=== PATIENT | male | born 1970 | race Caucasian/White ===

== ENCOUNTER 2022-11-18 22:31 | Emergency (ER) | payer OTHER ==
[2022-11-18 23:16] LABS: BASOPHILS ABSOLUTE AUTO 0.05 K/mm3 (0.01-0.08); BASOPHILS PERCENT AUTO 0.6 % (0.1-1.2); EOSINOPHILS ABSOLUTE AUTO 0.18 K/mm3 (0.04-0.54); EOSINOPHILS PERCENT AUTO 2.1 (0.8-7.0); HEMATOCRIT 46.2 % (40.1-51.0); HEMOGLOBIN 15.9 gm/dl (13.7-17.5); IMMATURE GRAN ABSOLUTE AUTO 0.01 K/mm3 (0.00-0.10); IMMATURE GRAN PERCENT AUTO 0.1 % (<=1.0); LYMPHOCYTES ABSOLUTE AUTO 3.47 K/mm3 (1.32-3.57); LYMPHOCYTES PERCENT AUTO 39.6 % (21.8-53.1); MEAN CORPUSCULAR HEMOGLOBIN 32.1 pg (25.7-32.2); MEAN CORPUSCULAR HGB CONC 34.4 g/dl (32.2-35.5); MEAN CORPUSCULAR VOLUME 93.1 fl (79.0-92.2); MEAN PLATELET VOLUME 9.6 fl (9.4-12.3); MONOCYTES ABSOLUTE AUTO 1.26 K/mm3 (0.30-0.82); MONOCYTES PERCENT AUTO 14.4 % (5.3-12.2); NEUTROPHILS PERCENT AUTO 43.2 % (34.0-67.9); PLATELET COUNT,PLT 307 K/mm3 (163-337); RED BLOOD CELL COUNT 4.96 M/mm3 (4.63-6.08); WHITE BLOOD CELL COUNT,WBC 8.77 K/mm3 (4.23-9.07)
[2022-11-18 23:41] LABS: A/G RATIO 1.1 (1-2); ALBUMIN 4.2 g/dl (3.4-5.0); ANION GAP 12.7 (5-15); BILIRUBIN TOTAL 0.4 mg/dL (0.2-1.0); BUN/CREATININE RATIO 17.5 (14-18); CALCIUM 9.5 mg/dL (8.5-10.1); CREATININE 1.2 mg/dL (0.7-1.3); EST CRCL DRUG DOSING (CG) 79.04 mL/min
[2022-11-18 23:42] LABS: POTASSIUM,K 3.7 mEq/L (3.5-5.1)
== END 2022-11-19 01:21 | disposition home or self-care (01) ==
LOC: JD.ED 22:31
DX: R07.89 Other chest pain (principal); R00.2 Palpitations; I10 Essential (primary) hypertension; F17.220 Nicotine dependence, chewing tobacco, uncomplicated; E66.9 Obesity, unspecified; Z68.38 Body mass index [BMI] 38.0-38.9, adult; Z86.16 Personal history of COVID-19; Z88.0 Allergy status to penicillin
CPT/HCPCS: 36415; 71046; 71046-26; 80053; 83880; 84484; 85025; 85379; 93005; 93010; 99284; 99285